=== PATIENT | male | born 1975 | race Caucasian/White ===

== ENCOUNTER 2017-04-25 18:05 | Emergency (ER) | payer BC ==
[2017-04-25 18:53] VITALS: BP 139/94
--- NOTE | 2017-04-25 19:42 | UC ---
Skin Complaint HPI - HPI Summary HPI Summary: Stepped on a teo nail. Needs tetanus update. - History of Current Complaint Chief Complaint: U[employer]kin Stated Complaint: NEEDS TETANUS STEPPED ON NAIL Hx Obtained From: Patient Onset/Duration: Sudden Onset - stepped on nail this afternoon. Skin Exposure Onset/Duration: Hours Ago - 4-5 Onset Severity: Moderate Current Severity: Mild Location: Foot (Left) - on the heel Character: Pain Aggravating: Touch Alleviating: Nothing Associated Signs & Symptoms: Positive: Tenderness. Negative: Weakness, Pallor, Shivering, Syncope, Drainage, Bruising Related History: Trauma - stepped on a nail. Punctured through the shoe. - Allergy/Home Medications Allergies/Adverse Reactions: Allergies Allergy/AdvReac Type Severity Reaction Status Date / Time Acetaminophen [From Tylenol] Allergy Intermediate Itching Verified 04/25/17 18: 53 Erythromycin Allergy Unknown Unknown Verified 04/25/17 18:53 Reaction Details Penicillins Allergy Unknown Unknown Verified 04/25/17 18:53 Reaction Details Review of Systems Skin: Bruising - around wound in the foot Is Patient Immunocompromised?: No All Other Systems Reviewed And Are Negative: Yes PMH/Surg Hx/FS Hx/Imm Hx Respiratory History: Asthma - Surgical History Surgical History: Yes Surgery Procedure, Year, and Place: COLECTOMY WITH COLOSTOMY FOR RUPTURED DIVERTICULUM WITH REANASTIMOSIS ONE YEAR LATER. - Family History Known Family History: Positive: Cardiac Disease, Hypertension, Diabetes - Social History Occupation: Employed Full-time Lives: Alone - with roommate Alcohol Use: Rare Substance Use Type: None Smoking Status (MU): Former Smoker Have You Smoked in the Last Year: No When Did the Patient Quit Smoking/Using Tobacco: 2012 - Immunization History Most Recent Tetanus Shot: unknown Physical Exam Triage Information Reviewed: Yes Appearance: Well-Appearing, No Pain Distress, Well-Nourished Vital Signs: Initial Vital Signs Temp 98.2 F 04/25/17 18:49 Pulse 75 04/25/17 18:49 Resp 17 04/25/17 18:49 BP 139/94 04/25/17 18:49 Pulse Ox 99 04/25/17 18:49 Vital Signs Reviewed: Yes Eyes: Positive: Conjunctiva Clear Neck exam: Normal Respiratory Exam: Normal Cardiovascular Exam: Normal Musculoskeletal Exam: Normal Neurological Exam: Normal Psychological Exam: Normal Skin: Positive: Other - puncture wound left heel with mild tenderness and bruising around it. Course/Dx - Differential Diagnoses - Skin Complaint Differential Diagnoses: Cellulitis, Impetigo, Other - Open wound - Diagnoses Provider Diagnoses: Open wound left foot Discharge - Discharge Plan Condition: Stable Disposition: HOME Patient Education Materials: Puncture Wound (ED), Diphtheria/Acellular Pertussis/Tetanus Vaccine (By injection) Additional Instructions: If you have increasing pain, follow up immediately for possible infection.
[2017-04-25] MEDS ORDERED: Tetan/Diph/Pertus SYR(Tdap)* 0.5 ML SYR(BOOSTRIX) use SYR IM ONE (19:44)
== END 2017-04-25 19:58 | disposition home or self-care (01) ==
LOC: UCCORT 18:05
DX: S91.332A Puncture wound without foreign body, left foot, initial encounter (principal); W45.0XXA Nail entering through skin, initial encounter; Y93.9 Activity, unspecified; Y92.9 Unspecified place or not applicable; Z23 Encounter for immunization; J45.909 Unspecified asthma, uncomplicated; Z88.6 Allergy status to analgesic agent; Z88.1 Allergy status to other antibiotic agents; Z88.0 Allergy status to penicillin; Z87.891 Personal history of nicotine dependence
CPT/HCPCS: 90471; 90715; 99211; G0463